=== PATIENT | male | born 1985 | race Caucasian/White ===

== ENCOUNTER 2021-04-26 16:39 | Emergency (ER) | payer SELFPAY ==
[~2021-04-26] VITALS: Ht 177.8 cm; Wt 91.6 kg
== END 2021-04-26 17:28 | disposition home or self-care (01) ==
LOC: ED 16:39
DX: T15.92XA Foreign body on external eye, part unspecified, left eye, initial encounter (principal); Y92.89 Other specified places as the place of occurrence of the external cause